=== PATIENT | female | born 1960 | race Caucasian/White ===

== ENCOUNTER → 2020-01-12 | Outpatient (CLI) | payer OTHER | END | disposition home or self-care (01) | LOC: PLD 08:24 → LAB SHORT 08:24 | DX: L57.0 Actinic keratosis (principal); L81.4 Other melanin hyperpigmentation | CPT/HCPCS: 88305 ==

== ENCOUNTER → 2021-01-12 | Outpatient (CLI) | payer OTHER | LOC: LAB SHORT 10:58 | DX: D48.5 Neoplasm of uncertain behavior of skin (principal); L30.8 Other specified dermatitis | CPT/HCPCS: 88305; 88312 ==

== ENCOUNTER → 2021-12-06 | Outpatient (CLI) | payer OTHER | END | disposition home or self-care (01) | LOC: LAB SHORT 13:14 → LAB 13:14 | DX: C43.9 Malignant melanoma of skin, unspecified (principal) | CPT/HCPCS: 82533 ==